=== PATIENT | male | born 1965 | race Caucasian/White ===

== ENCOUNTER 2020-06-08 09:22 | Emergency (ER) | payer SELFPAY ==
[~2020-06-08] VITALS: Ht 180.3 cm; Wt 113.4 kg
== END 2020-06-08 10:30 | disposition home or self-care (01) ==
LOC: ED 09:22
DX: S05.01XA Injury of conjunctiva and corneal abrasion without foreign body, right eye, initial encounter (principal); X58.XXXA Exposure to other specified factors, initial encounter; Y93.89 Activity, other specified; Y92.89 Other specified places as the place of occurrence of the external cause; Y99.8 Other external cause status